=== PATIENT | female | born 2000 | race Caucasian/White ===

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

== ENCOUNTER 2022-02-24 12:34 | Emergency (ER) | payer BC, MEDICAID, OTHER ==
[2022-02-24 13:23] LABS: CHLORIDE,CL 102 mmol/L (98-107); SODIUM,NA 136 mmol/L (136-145)
[2022-02-24 13:28] LABS: ANION GAP 14.2 mmol/L (5-15)
[2022-02-24] MEDS ORDERED: Ketorolac 30 MG/ML SDV IM ONE (13:41)
[2022-02-24 14:05] VITALS: BP 124/81; PULSE 89
== END 2022-02-24 14:26 | disposition home or self-care (01) ==
LOC: VM.ED 12:34
DX: K59.00 Constipation, unspecified (principal)
CPT/HCPCS: 36415; 71101-RT; 74019; 80053; 81001; 82150; 83690; 85025; 86140; 96372; 99283; 99283-25; J1885

== ENCOUNTER 2023-12-18 08:50 | Emergency (ER) | payer MEDICAID, BC ==
[2023-12-18 10:20] VITALS: BP 121/77; PULSE 77
== END 2023-12-18 09:13 | disposition home or self-care (01) ==
LOC: VM.ED 08:50
DX: K02.9 Dental caries, unspecified (principal); Z91.018 Allergy to other foods; Z79.899 Other long term (current) drug therapy
CPT/HCPCS: 99283

== ENCOUNTER 2023-12-23 06:00 | Emergency (ER) | payer MEDICAID, BC ==
[2023-12-23] MEDS: Albuterol/Ipratropium 3.0-0.5 MG/3 ML Neb Soln NEB ONE (06:03)
[2023-12-23] MEDS: Take Home: Albuterol 18 GM Inhaler, 1 Inhaler Pack INH PRN (06:13)
[2023-12-23] MEDS: Ibuprofen 200 MG Tab PO STA (06:24)
[2023-12-23 06:35] VITALS: PULSE 136
[2023-12-23 06:56] VITALS: BP 110/61
== END 2023-12-23 06:45 | disposition home or self-care (01) ==
LOC: VM.ED 06:00
DX: J45.909 Unspecified asthma, uncomplicated (principal); F17.200 Nicotine dependence, unspecified, uncomplicated; Z91.018 Allergy to other foods; Z79.899 Other long term (current) drug therapy
CPT/HCPCS: 94640; 99283; 99284; A9270-GY; J7620-GY